=== PATIENT | female | born 1955 | race Caucasian/White ===

== ENCOUNTER 2016-12-20 12:25 | Emergency (ER) | payer OTHER ==
--- NOTE | 2016-12-20 13:56 | DIAGNOSTIC IMAGING REPORT ---
PROCEDURE: XR CHEST 1 VIEW INDICATION: CHEST PAIN TECHNIQUE: Portable AP view 01:14 p.m. COMPARISON: Chest 08/17/2015 FINDINGS: Lungs are clear. Heart and mediastinum are normal. Thorax is normal. IMPRESSION: 1. Negative chest.
--- NOTE | 2016-12-20 14:53 | ED CLINICAL REPORT ---
Clinical Report - Physicians/Mid Levels [facility] [address] [place] [address] 12/20/2016 12:27 Patient: TYLER TELLES Arrived- By private vehicle. Historian- patient. HISTORY OF PRESENT ILLNESS Chief Complaint: CHEST PAIN. It is described as tightness and it is described as located in the central chest area. No radiation. This started this morning and is still present. It was abrupt in onset and has been constant but is not gone now. Onset during rest. At its maximum, severity described as moderate. When seen in the E.D., severity described as moderate. Modifying factors- (reports the pain does not change with exertion). Not worsened by anything. Not relieved by anything. No nausea, vomiting or diaphoresis. She has had difficulty breathing. No additional chest pain. Similar symptoms previously: None. Recent medical care: The patient was seen recently in a clinic (referred to ED for further eval.). REVIEW OF SYSTEMS No fever, chills or skin rash. She has had abdominal pain. All systems otherwise negative, except as recorded above. PAST HISTORY See nurses notes. Medications: Albuterol Sulfate Inhalation. Lisinopril Oral. Estrogens Conjugated Oral. Dulara inhaler. PriLOSEC Oral. Allergies: No Known Drug Allergy. SOCIAL HISTORY Former smoker. Occasional alcohol use. No drug use. Is a local resident. FAMILY HISTORY No history of heart disease. No family history of premature onset heart disease. ADDITIONAL NOTES The nursing notes have been reviewed. PHYSICAL EXAM Vital Signs: 12/20/2016 12:33 BP: 135/71. HR: 93. RR: 19. O2 saturation: 98%. Temp: 98 F. Pain level now: 6/10. Blood pressure normal. Oxygen saturation normal. Appearance: Alert. Oriented X3. No acute distress. Eyes: Pupils equal, round and reactive to light. Eyes normal inspection. No pale conjunctivae. ENT: Ears normal. Nose normal. Pharynx normal. Neck: Normal inspection. Neck supple. No JVD. CVS: Normal heart rate and rhythm. Heart sounds normal. Pulses normal. Respiratory: No respiratory distress. No respiratory distress. Breath sounds normal. Chest nontender. No rales, rhonchi or wheezes. Abdomen: Soft and nontender. Bowel sounds normal. No mass. Back: Normal external inspection. Skin: Skin warm and dry. Normal skin color. No rash. Normal skin turgor. Extremities: Extremities exhibit normal ROM. No lower extremity edema. Neuro: Oriented X 3. No motor deficit. No sensory deficit. LABS, X-RAYS, AND EKG EKG: No acute process. No acute ischemia. Normal EKG. Normal sinus rhythm. Normal P waves. Normal NGUYEN. Normal QRS complex. Normal axis. Normal ST and T waves, QT and QTc. normal sinus. The study has been interpreted contemporaneously by me. The study has been independently viewed by me. The EKG appears to be a good tracing. Chest X-ray: (PROCEDURE: XR CHEST 1 VIEW INDICATION: CHEST PAIN TECHNIQUE: Portable AP view 01:14 p.m. COMPARISON: Chest 08/17/2015 FINDINGS: Lungs are clear. Heart and mediastinum are normal. Thorax is normal. IMPRESSION: 1. Negative chest.). Laboratory Tests: UA-Culture if indicated: (CINDY: 12/20/2016 13:50) ( MsgRcvd 12/20/2016 14:16) Final results Test Result Flag Units (Reference) URINE COLOR YELLOW URINE APPEARANCE HAZY URINE GLUCOSE NEGATIVE (NEGATIVE) URINE BILIRUBIN NEGATIVE (NEGATIVE) URINE KETONE TRACE (NEGATIVE) URINE SPECIFIC GRAVITY 1.015 (1.010-1.030) URINE PH 5.5 (5.0-8.0) URINE PROTEIN NEGATIVE (NEGATIVE) URINE UROBILINOGEN 0.2 EU/dL (0.2-1.0) URINE NITRITE NEGATIVE (NEGATIVE) URINE BLOOD NEGATIVE (NEGATIVE) URINE LEUK ESTERASE POSITIVE (NEGATIVE) URINE RBC NONE SEEN rbc/hpf (0-1) URINE WBC 1-3 wbc/hpf (0-1) URINE EPITHELIAL CELLS 3-5 EPI/hpf (0-5) URINE BACTERIA FEW (1+) (NONE SEEN) URINE COMMENT CULTURE INDICATED 1+ AMORPHOUS URATES1+ MUCUSURINE CULTURES ARE SET-UP BASED ON THE FOLLOWING CRITERIA:POSITIVE NITRITEPOSITIVE LEUKOCYTE ESTERASEGREATER THAN 10 WHITE BLOOD CELLSMODERATE (2+) OR GREATER BACTERIA CBC w Diff: (CINDY: 12/20/2016 12:35) ( [facility] [place] 13:40) Final results Test Result Flag Units (Reference) WHITE BLOOD COUNT 6.6 K/uL (4.5-11.5) RED BLOOD COUNT 4.37 M/uL (4.00-5.20) HEMOGLOBIN 13.9 gm/dL (12.0-16.0) HEMATOCRIT 41.1 % (36.0-46.0) MEAN CELL VOLUME 94 fL (80-100) MEAN CORPUSCULAR HGB 32 pg (26-34) MEAN CORPUSCULAR HGB CONC 34 g/dL (31-37) RED CELL DISTRIBUTION WIDTH 14.5 % (11.6-14.8) PLATELET COUNT 221 K/uL (150-400) NEUTROPHIL % 66.2 % (50-75) LYMPH % 28.8 % (25-40) MONO % 3.7 % (3-14) EOSINOPHIL % 0.9 % (0-4) BASOPHIL % 0.4 % (0-2) PT with INR: (CINDY: 12/20/2016 12:35) ( Mscvd 12/20/2016 13:42) Final results Test Result Flag Units (Reference) INR 0.9 (0.8-1.2) Low Intensity Therapy: INR 1.5-2.0 PT range 18.5-23.1Mod.Intensity Therapy: INR 2.0-3.0 PT range 23.1-31.5High Intensity Therapy: INR 2.5-3.5 PT range 27.4-35.5High Intensity Therapy 2: INR 3.0-4.0 PT range 31.5-39.3 D-DIMER QUANTITATIVE 0.33 ug/mLFEU (0.27-0.52) The primary value of this quantitative assay relates toits negative predictive value (i.e. exclusion) of pulmonaryembolism/deep vein thrombosis/DIC.Elevated levels of d-dimer may also occur with:, age, cancer, inflammation, liver disease,post-op, infection, hematoma, coronary disease, peripheralarteriopathy, bleeding disorders and thrombolytic treatment.Results should be correlated with other clinical andradiological data.Testing Methodology: Latex Immunoassay CMP: (CINDY: 12/20/2016 12:35) ( MsgRcvd 12/20/2016 13:46) Final results Test Result Flag Units (Reference) GLUCOSE 168 H mg/dL (70-110) BUN 13 mg/dL (7-18) CREATININE 0.9 mg/dL (0.6-1.3) Estimated GFR >60 mL/min Estimated GFR- >60 mL/min Note: Persistent reduction over 3 months in eGFR<60 mL/min/1.73 m2 defines CKD. Patients with eGFR values>=60 mL/min/1.73 m2 may also have CKD if evidence ofpersistent proteinuria. Additional information may be foundat www.kidney.org. SODIUM 141 mmol/L (136-145) POTASSIUM 3.7 mmol/L (3.5-5.1) CHLORIDE 103 mmol/L (98-107) CARBON DIOXIDE 23 mmol/L (21-32) CALCIUM 8.2 L mg/dL (8.5-10.1) TOTAL PROTEIN 6.6 g/dL (6.4-8.2) ALBUMIN 3.7 g/dL (3.3-5.0) BILIRUBIN, TOTAL 0.3 mg/dL (0.0-1.0) ALKALINE PHOSPHATASE 77 U/L (46-116) AST (SGOT) 24 U/L (15-37) ALT (SGPT) 27 U/L (12-78) TROPONIN I <0.05 L ng/mL (0.00-1.5) TROPONIN REFERENCE RANGE:<0.1 NEGATIVE0.1-1.5 INDETERMINANT>1.5 POSITIVE Culture, Urine: (CINDY: 12/20/2016 13:50) ( MsgRcvd 12/22/2016 08:02) Final results Test Result Flag Units (Reference) CULTURE, URINE DATE: 12/22/16 PRELIM REPORT: FINAL REPORT -- YST QUANTITATIVE URINE GROWTH: 10,000 TO 50,000 CFU/mL . PROGRESS AND PROCEDURES Course of Care: The patient is a pleasant 61-year-old female with past medical history significant for prior smoking preses includes thoracic dissection, pulmonary embolism,and acute myocardial infraction. Patient will be provided with chest x-ray as well as laboratory es and EKG. Patient is agreeable to treatment plan. Patient is hemodynamically within normal limits. Patient is nontoxic. We will monitor closely. Patient's EKG was reviewed. No acute abnormalities. No signs of ischemia. Patient's workup was noted to be negative. Feel that one troponin is significant enough to rule out acute myocardial infarction at this time. Patient withouta change of symptoms since presentation to the emergency department and pain has been constant. The pain is also's occurred since this morning. It is been more than 8 hours since the onset of patient's symptoms. Patient is a good outpatient candidate. Do not feel patient has aortic dissection with a normal d-dimer. Patient also sufficiently low risk forrule out of pulmonary embolism with d-dimer. Discussed the patient workup, diagnosis, home care, follow-up, and return precautions. All questions answered. The patient expressed understanding of these instructions and was agreeable to them. Of note, the patient's urinalysis was noted to be positive for nitrites. Because of this, patient will be treated for urinary tract infection. The note is being completed after the culture results have grown out Escherichia coli. Patient is on appropriate antibiotic therapy however is awaiting culture results. Disposition: Discharged. Condition: good. CLINICAL IMPRESSION Atypical chest pain .12 lead EKG performed. (acute anterior). Acute urinary tract infection. INSTRUCTIONS Warnings: GENERAL WARNINGS: Return or contact your physician immediately if your condition worsens or changes unexpectedly, if not improving as expected, or if other problems arise. SPECIFICALLY, return if you develop chest, neck, jaw, shoulder, arm, or back pain, difficulty breathing, a fluttering sensation in your chest, lightheadedness, fainting, excessive fatigue, or sudden sweating. Your Current Medications: CONTINUE TAKING THE FOLLOWING MEDICATIONS: Albuterol Sulfate Inhalation. Dulara inhaler*. Estrogens Conjugated Oral. Lisinopril Oral. PriLOSEC Oral. Prescription Medications: Keflex 500 mg: take 1 capsule orally every 8 hours for 5 days. No refill. Substitution is permissible. (disp 15 caps) OTC Medications: Aspirin 81 mg (available over the counter): take 1 orally every 24 hours. Dispense thirty (30). No refills. Follow-up: Return to the emergency department as needed. Follow up with your doctor in three days. Reason for referral: recheck today's concerns. Summary of care provided to patient via paper. Screening today revealed the patient's blood pressure to be in the normal range. The patient should follow up with a primary care provider for blood pressure management. Understanding of the discharge instructions verbalized by patient. (Electronically signed by Sonu Madrid Dr. 12/23/2016 6:42) Addenda for KOKI TYLER Delano VisitID: [id number] Date: 12/20/2016 12/22/2016 17:03 1650 contacted pt re: urine cultre; will call rx for Diflucan 150 mg, 1 po x3 days, #3, to [facility] in [place] per H Emery FLOR, script called in (Electronically signed by Haydee Hess R.N. - 12/22/2016 17:03)
--- NOTE | 2016-12-20 14:54 | ED ORDER SUMMARY ---
..... 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 per protocol) (13:02 EHassan R.N.) EKG - ER Stat (13:12/20/2016 EHassan R.N. per protocol) (13:02 EHassan R.N.) Vitals (13:12/20/2016 EHassan R.N. per protocol) (13:02 EHassan R.N.) Chest 1V Urgent (13:12/20/2016 Joon Mcdonald) (Ack 13:15 LMuller) (13:25 EHassan R.N.) Workforce Management Analyst (Continuous) (CP) (13:12/20/2016 Joon Mcdonald) (Ack 13:15 LMuller) (13:25 EHassan R.N.) CBC w Diff Urgent (13:12/20/2016 Joon Mcdonald) (Ack 13:15 LMuller) (13:25 EHassan R.N.) CMP Urgent (13:12/20/2016 Joon Mcdonald) (Ack 13:15 LMuller) (13:25 EHassan R.N.) UA-Culture if indicated Urgent (13:12/20/2016 Joon Mcdonald) (Ack 13:15 LMuller) (13:53 EHassan R.N.) PT with INR Urgent (13:12/20/2016 Joon Mcdonald) (Ack 13:15 LMuller) (13:25 EHassan R.N.) D-Dimer Urgent (13:12/20/2016 Joon Mcdonald) (Ack 13:15 LMuller) (13:25 EHassan R.N.) Troponin-I Urgent (13:12/20/2016 Joon Mcdonald) (Ack 13:15 LMuller) (13:25 Emanuel R.N.) Pulse oximeter (13:08 12/20/2016 Joon Mcdonald) (Ack 13:15 LMuller) (13:25 Emanuel R.N.) MEDICATION ORDERS: Aspirin PO 325 mg (Do not crush or chew, NOW) (13:08 12/20/2016 Joon Mcdonald) (13:25 Emanuel R.N.) Keflex PO 500 mg (NOW) (14:51 12/20/2016 Joon Mcdonald) (14:56 Emanuel R.N.) IV FLUIDS: IV Saline Lock (13:02 12/20/2016 Emanuel Snigh per protocol) (13:02 Emanuel Duncan.N.) IV Saline Lock (13:08 12/20/2016 Joon Mcdonald) ORDER SHEET NOTES: [Electronically signed by Afua Rodas R.N. (15:07 12/20/2016)] [Electronically signed by Sonu Madrid Dr. (06:42 12/23/2016)] [Electronically locked/signed by Afua Rodas R.N. (15:07 12/20/2016)]
--- NOTE | 2016-12-20 14:54 | ED ORDER SUMMARY ---
..... 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 per protocol) (13:02 EHassan R.N.) EKG - ER Stat (13:12/20/2016 EHassan R.N. per protocol) (13:02 EHassan R.N.) Vitals (13:12/20/2016 EHassan R.N. per protocol) (13:02 EHassan R.N.) Chest 1V Urgent (13:12/20/2016 Joon Mcdonald) (Ack 13:15 LMuller) (13:25 EHassan R.N.) Shipyard Supervisor (Continuous) (CP) (13:12/20/2016 Joon Mcdonald) (Ack 13:15 LMuller) (13:25 EHassan R.N.) CBC w Diff Urgent (13:12/20/2016 Joon Mcdonald) (Ack 13:15 LMuller) (13:25 EHassan R.N.) CMP Urgent (13:12/20/2016 Joon Mcdonald) (Ack 13:15 LMuller) (13:25 EHassan R.N.) UA-Culture if indicated Urgent (13:12/20/2016 Joon Mcdonald) (Ack 13:15 LMuller) (13:53 EHassan R.N.) PT with INR Urgent (13:12/20/2016 Joon Mcdonald) (Ack 13:15 LMuller) (13:25 EHassan R.N.) D-Dimer Urgent (13:12/20/2016 Joon Mcdonald) (Ack 13:15 LMuller) (13:25 EHassan R.N.) Troponin-I Urgent (13:12/20/2016 Joon Mcdonald) (Ack 13:15 LMuller) (13:25 Emanuel R.N.) Pulse oximeter (13:08 12/20/2016 Joon Mcdonald) (Ack 13:15 LMuller) (13:25 Emanuel R.N.) MEDICATION ORDERS: Aspirin PO 325 mg (Do not crush or chew, NOW) (13:08 12/20/2016 Joon Mcdonald) (13:25 Emanuel R.N.) Keflex PO 500 mg (NOW) (14:51 12/20/2016 Joon Mcdonald) (14:56 Emanuel R.N.) IV FLUIDS: IV Saline Lock (13:02 12/20/2016 Emanuel Singh per protocol) (13:02 Emanuel Duncan.N.) IV Saline Lock (13:08 12/20/2016 Joon Mcdonald) ORDER SHEET NOTES: [Electronically signed by Afua Rodas R.N. (15:07 12/20/2016)] [Electronically signed by Sonu Madrid Dr. (06:42 12/23/2016)] [Electronically locked/signed by Afua Rodas R.N. (15:07 12/20/2016)]
--- NOTE | 2016-12-20 14:54 | ED NURSING NOTES ---
Clinical Report - Nurses [facility] [address] [place] [address] 12/20/2016 12:27 Patient: TYLER TELLES TRIAGE Triage time 1234 PM. Acuity: LEVEL 3. Chief Complaint: CHEST PAIN and DISCOMFORT and SHORTNESS OF BREATH. Alert. No acute distress. SEPSIS SCREEN: Sepsis Screen. Negative (no infection suspected/documented). --12:42 Afua Rodas R.N. 12:33 12/20/16. BP: 135/71. HR: 93. RR: 19. O2 saturation: 98% on room air. Temp: 98 F (oral). Pain level now: 04/28. --12:42 Afua Rodas R.N. Weight: 56.6 kg stated. Height/Length: 65 inches Per Patient. BMI: 20.8. --12:35 Afua Rodas R.N. Medications Dulara inhaler. PriLOSEC Oral. --12:39 Afua Rodas R.N. Estrogens Conjugated Oral. --12:40 Afua Rodas R.N. Lisinopril Oral. --12:40 Afua Rodas R.N. Albuterol Sulfate Inhalation. --12:40 Afua Rodas R.N. Allergies No Known Drug Allergy. --12:39 Afua Rodas R.N. Medication/allergy information source: the patient. --12:42 Afua Rodas R.N. History Arrived by private vehicle. Historian: patient. Accompanied by family. Primary physician (Dr. Toth). ( Pt has been experiencing CP and heaviness, started with numbness on the left side "heaviness" last night and has gotten worst since this morning. Pt has been experiencing dizziness with SOB. Pt was sent over from the clinic to further evaluate CP). The patient has had difficulty breathing. Reports experiencing sweating episodes. 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 PAST MEDICAL HX: Immunizations: up-to-date. SOCIAL HX: Former smoker. Occasional alcohol use; consumes wine by the glass. No drug use. ABUSE ASSESSMENT: No report of abuse. SELF HARM ASSESSMENT: A self harm assessment was performed. The patient answered "no" to the question "Do you have thoughts of harming or killing yourself?" and "Have you recently had thoughts about harming or killing others?". FALL RISK ASSESSMENT: Fall risk assessment completed. No fall risk identified. NUTRITIONAL RISK ASSESSMENT: The nutritional risk assessment revealed no deficiencies. FUNCTIONAL ASSESSMENT: Functional assessment: no impairments noted. LEARNING NEEDS ASSESSMENT: The learning needs assessment revealed no barriers. SKIN INTEGRITY ASSESSMENT: Skin integrity risk assessment completed. No skin integrity risk identified. --12:42 Afua Rodas R.N. PROBLEMS: Gastroesophageal Reflux Disease. Acute Pain. Gastroesophageal Reflux. Depression. Anxiety Reaction. Asthma. --12:39 Afua Rodas R.N. Hypertension. --12:40 Afua Rodas R.N. ADDITIONAL SURGERIES: Hernia Repair. Hysterectomy. --12:39 Afua Rodas R.N. Interventions ID band on patient. --12:42 Afua Rodas R.N. PHYSICAL ASSESSMENT 12:53 PM. Ambulatory to room. ( Pt does state being sick late October with a couple of rounds of ABX, diagnosed with bronchitis, does admit when taking deep breath "hurts my chest"). GENERAL / NEURO / PSYCH: Alert. Oriented X 4. Appears in no acute distress. HEENT: Mucous membranes are pink. RESPIRATORY: Respirations not labored. Chest nontender. Breath sounds within normal limits. CVS: Normal sinus rhythm noted. Heart sounds within normal limits. Pulses within normal limits. Capillary refill less than 2 seconds. GI / : Abdomen soft and nontender. EXTREMITIES: No lower extremity edema. SKIN: Skin is warm and dry. Normal skin turgor. Skin is non-tender. --13:01 Afua Rodas R.N. NURSING PROGRESS NOTES 12:44 12/20/2016 Site #1 started via IV in the left forearm with an 20g angiocath; one attempt. Blood drawn: rainbow set. Labeled in the presence of the patient and sent to the lab. Saline lock flushed with 10 mL saline. --12:54 Afua Rodas R.N. Cardiac rhythm: normal sinus rhythm. The initial plan of care for this patient has been created This plan of care was discussed with the patient. campus monitor, pulse oximeter and NIBP monitor placed on patient. EKG time: (1250 PM). EKG was performed by a nurse and shown to the ED physician. Patient ID band checked for patient name, birthdate and medical record number: patient confirmed. Blood samples drawn from the left forearm peripheral IV site with Vacutainer 22g by nurse per protocol ; labeled in presence of the patient and sent to lab: rainbow set. Patient gowned. Reassurance given. The patient is calm. Overall patient status is the same- she states feels the same. RESPIRATORY: Denies difficulty breathing. No respiratory distress. CVS: The patient reports chest pain. Normal sinus rhythm noted. SKIN: Skin color within normal limits. Two patient identifiers checked. Call light placed in reach. Side rails up x 1. Brakes of bed on. Brakes of chair on. ( Pt states pain gets worse when takes deep breaths and when exposed to cold weather.). --12:56 Afua Rodas R.N. 12:53 12/20/16. BP: 147/79. HR: 79. RR: 19. O2 saturation: 100%. Pain level now: 03/28. --12:56 Afua Rodas R.N. 13:00 12/20/16. BP: 149/81 (regular adult cuff) taken on the right arm, via an automated monitor, while sitting. HR: 82 (regular and normal rate). RR: 17. O2 saturation: 97%. Pain level now: 03/28. --13:20 Afua Rodas R.N. Portable chest x-ray performed. Reassurance given. The patient is calm and resting quietly. --13:20 Afua Rodas R.N. 13:20 12/20/2016 Aspirin PO Tablets 325 mg given. Allergies verified and confirmed 5 rights. --13:25 Afua Rodas R.N. 13:54 12/20/2016 Aspirin PO Response: no adverse reaction. --13:54 Afua Rodas R.N. 14:56 12/20/2016 Keflex (Cephalexin) PO Tablets 500 mg given. Allergies verified and confirmed 5 rights. --14:56 Afua Rodas R.N. DISPOSITION / DISCHARGE 15:00 12/20/2016 Site #1 removed upon discharge. Catheter intact. Manual pressure and bandaid applied. --15:05 Afua Rodas R.N. Cardiac rhythm: normal sinus rhythm. Departure time: 1503 PM. Condition at departure: improved and stable. The goals identified in the patient's plan of care were met. No learning barriers present. Discharge instructions provided and reviewed with the patient. Reviewed medication(s) side effects, precautions, dosing and course information. Prescription(s) given to the patient. Reviewed need for increased fluid intake. Activity restrictions (rest) reviewed. Patient verbalized understanding. Written instructions provided in Czech. The patient was discharged by the physician. She was discharged home and unaccompanied at time of discharge. She left the Emergency Department ambulatory and via private vehicle. Patient driving. FALL RISK ASSESSMENT: Fall risk assessment completed. No fall risk identified. ELINOR COMA SCORE: [place] Coma Scale: 15- eyes open spontaneously (4); best verbal response- oriented x 4 (5); best motor response- obeys commands (6). --15:06 Afua Rodas R.N. 15:00 12/20/16. BP: 145/96 (regular adult cuff) taken on the left arm, via an automated monitor, while sitting. HR: 75 (regular and normal rate). RR: 12 (regular and unlabored). O2 saturation: 100% on room air. Temp: 98 F (oral). Pain level now: 01/26. --15:06 Afua Rodas R.N. Locked/Released at 12/20/2016 15:07 by Afua Rodas R.N.
--- NOTE | 2016-12-23 06:42 | ED DISCHARGE INSTRUCTIONS ---
Patient: TYLER TELLES General Instructions [facility] VisitID: [id number] [place] [address] 61y, F Registration Date/Time: 12/20/2016 Atypical chest pain .12 lead EKG performed. (acute anterior). Acute urinary tract infection. INSTRUCTIONS Warnings: GENERAL WARNINGS: Return or contact your physician immediately if your condition worsens or changes unexpectedly, if not improving as expected, or if other problems arise. SPECIFICALLY, return if you develop chest, neck, jaw, shoulder, arm, or back pain, difficulty breathing, a fluttering sensation in your chest, lightheadedness, fainting, excessive fatigue, or sudden sweating. Your Current Medications: CONTINUE TAKING THE FOLLOWING MEDICATIONS: Albuterol Sulfate Inhalation. Dulara inhaler*. Estrogens Conjugated Oral. Lisinopril Oral. PriLOSEC Oral. Prescription Medications: Keflex 500 mg: take 1 capsule orally every 8 hours for 5 days. No refill. Substitution is permissible. (disp 15 caps) OTC Medications: Aspirin 81 mg (available over the counter): take 1 orally every 24 hours. Dispense thirty (30). No refills. Follow-up: Return to the emergency department as needed. Follow up with your doctor in three days. Reason for referral: recheck today's concerns. Summary of care provided to patient via paper. Screening today revealed the patient's blood pressure to be in the normal range. The patient should follow up with a primary care provider for blood pressure management. Understanding of the discharge instructions verbalized by patient. ADDITIONAL INFORMATION Chest Pain, Uncertain Cause Chest pain can happen for a number of reasons. Sometimes the cause can not be determined. If yourcondition does not seem serious, and your pain does not appear to be coming from your heart, your doctor may recommend watching it closely. Sometimes the signs of a serious problem take more time to appear. Therefore, watch for the warning signs listed below. Home care After your visit, follow these recommendations: Rest today and avoid strenuous activity. Take any prescribed medicine as directed. Follow-up care Follow up with your doctor or this facility as instructed or if you do not start to feel better within 24 hours. Call 911 Get immediate medical attention if any of the following occur: A change in the type of pain: if it feels different, becomes more severe, lasts longer, or begins to spread into your shoulder, arm, neck, jaw or back Shortness of breath or increased pain with breathing Weakness, dizziness, or fainting Rapid heart beat Get prompt medical attention Call your doctor right away if any of the following occur: Cough with dark colored sputum (phlegm) or blood Fever of 100.4F(38C) or higher, or as directed by your health care provider Swelling, pain or redness in one leg Bladder Infection,Female (Adult) A bladder infection ("cystitis" or "UTI") usually causes a constant urge to urinate and a burning when passing urine. Urine may be cloudy, smelly or dark. There may be pain in the lower abdomen. A bladder infection occurs when bacteria from the vaginal area enter the bladder opening (urethra). This can occur from sexual intercourse, wearing tight clothing, dehydration and other factors. Home Care: Drink lots of fluids (at least 6-8 glasses a day, unless you must restrict fluids for other medical reasons). This will force the medicine into your urinary system and flush the bacteria out of your body. Avoid sexual intercourse until your symptoms are gone. Avoid caffeine, alcohol and spicy foods. These can irritate the bladder. A bladder infection is treated with antibiotics. You may also be given Pyridium (generic = phenazopyridine) to reduce the burning sensation. This medicine will cause your urine to become a bright orange color. The orange urine may stain clothing. You may wear a pad or panty-liner to protect clothing. Preventing Future Infections: Always wipe from front to back after a bowel movement. Keep the genital area clean and dry. Drink plenty of fluids each day to avoid dehydration. Both sexual partners should wash before intercourse. Urinate right after intercourse to flush out the bladder. Wear cotton underwear and cotton-lined panty hose; avoid tight-fitting pants. If you are on control pills and are having frequent bladder infections, discuss with your doctor. Follow Up: Return to this facility or see your doctor if ALL symptoms are not gone after three days of treatment. Get Prompt Medical Attention if any of the following occur: Fever of 100.4F (38C) or higher, or as directed by your healthcare provider No improvement by the third day of treatment Increasing back or abdominal pain Repeated vomiting; unable to keep medicine down Weakness, dizziness or fainting Vaginal discharge Pain, redness or swelling in the labia (outer vaginal area) Cephalexin Monohydrate Oral tablet What is this medicine? CEPHALEXIN (sef a TIMOTHY in) is a cephalosporin antibiotic. It is used to treat certain kinds of bacterial infections It will not work for colds, flu, or other viral infections. How should I use this medicine? Take this medicine by mouth with a full glass of water. Follow the directions on the prescription label. This medicine can be taken with or without food. Take your medicine at regular intervals. Do not take your medicine more often than directed. Take all of your medicine as directed even if you think you are better. Do not skip doses or stop your medicine early. Talk to your courier regarding the use of this medicine in children. While this drug may be prescribed for selected conditions, precautions do apply. What side effects may I notice from receiving this medicine? Side effects that you should report to your doctor or health career based intervention coordinator as soon as possible: allergic reactions like skin rash, itching or hives, swelling of the face, lips, or tongue breathing problems pain or trouble passing urine redness, blistering, peeling or loosening of the skin, including inside the mouth severe or watery diarrhea unusually weak or tired yellowing of the eyes, skin Side effects that usually do not require medical attention (report to your doctor or health career based intervention coordinator if they continue or are bothersome): gas or heartburn genital or anal irritation headache joint or muscle pain nausea, vomiting What may interact with this medicine? probenecid some other antibiotics What if I miss a dose? If you miss a dose, take it as soon as you can. If it is almost time for your next dose, take only that dose. Do not take double or extra doses. There should be at least 4 to 6 hours between doses. Where should I keep my medicine? Keep out of the reach of children. Store at room temperature between 59 and 86 degrees F (15 and 30 degrees C). Throw away any unused medicine after the expiration date. What should I tell my health care provider before I take this medicine? They need to know if you have any of these conditions: kidney disease stomach or intestine problems, especially colitis an unusual or allergic reaction to cephalexin, other cephalosporins, penicillins, other antibiotics, medicines, foods, dyes or preservatives or trying to get breast-feeding What should I watch for while using this medicine? Tell your doctor or health career based intervention coordinator if your symptoms do not begin to improve in a few days. Do not treat diarrhea with over the counter products. Contact your doctor if you have diarrhea that lasts more than 2 days or if it is severe and watery. If you have diabetes, you may get a false-positive result for sugar in your urine. Check with your doctor or health career based intervention coordinator. Aspirin Oral tablet What is this medicine? ASPIRIN ( pir in) is a pain reliever. It is used to treat mild pain and fever. This medicine is also used as directed by a doctor to prevent and to treat heart attacks, to prevent strokes, and to treat arthritis or inflammation. How should I use this medicine? Take this medicine by mouth with a glass of water. Follow the directions on the package or prescription label. You can take this medicine with or without food. If it upsets your stomach, take it with food. Do not take your medicine more often than directed. Talk to your courier regarding the use of this medicine in children. While this drug may be prescribed for children as young as 12 years of age for selected conditions, precautions do apply. Children and teenagers should not use this medicine to treat chicken pox or flu symptoms unless directed by a doctor. Patients over 65 years old may have a stronger reaction and need a smaller dose. What side effects may I notice from receiving this medicine? Side effects that you should report to your doctor or health career based intervention coordinator as soon as possible: allergic reactions like skin rash, itching or hives, swelling of the face, lips, or tongue breathing problems changes in hearing, ringing in the ears confusion general ill feeling or flu-like symptoms pain on swallowing redness, blistering, peeling or loosening of the skin, including inside the mouth or nose signs and symptoms of bleeding such as bloody or black, tarry stools; red or dark-brown urine; spitting up blood or brown material that looks like coffee grounds; red spots on the skin; unusual bruising or bleeding from the eye, gums, or nose trouble passing urine or change in the amount of urine unusually weak or tired yellowing of the eyes or skin Side effects that usually do not require medical attention (report to your doctor or health career based intervention coordinator if they continue or are bothersome): diarrhea or constipation nausea, vomiting stomach gas, heartburn What may interact with this medicine? Do not take this medicine with any of the following medications: cidofovir ketorolac probenecid This medicine may also interact with the following medications: alcohol alendronate bismuth subsalicylate flavocoxid herbal supplements like feverfew, garlic, montez, ginkgo biloba, horse chestnut medicines for diabetes or glaucoma like acetazolamide, methazolamide medicines for gout medicines that treat or prevent blood clots like enoxaparin, heparin, ticlopidine, warfarin other aspirin and aspirin-like medicines NSAIDs, medicines for pain and inflammation, like ibuprofen or naproxen pemetrexed sulfinpyrazone varicella live vaccine What if I miss a dose? If you are taking this medicine on a regular schedule and miss a dose, take it as soon as you can. If it is almost time for your next dose, take only that dose. Do not take double or extra doses. Where should I keep my medicine? Keep out of the reach of children. Store at room temperature between 15 and 30 degrees C (59 and 86 degrees F). Protect from heat and moisture. Do not use this medicine if it has a strong vinegar smell. Throw away any unused medicine after the expiration date. What should I tell my health care provider before I take this medicine? They need to know if you have any of these conditions: anemia asthma bleeding problems child with chickenpox, the flu, or other viral infection diabetes gout if you frequently drink alcohol containing drinks kidney disease liver disease low level of vitamin K lupus smoke tobacco stomach ulcers or other problems an unusual or allergic reaction to aspirin, tartrazine dye, other medicines, dyes, or preservatives or trying to get breast-feeding What should I watch for while using this medicine? If you are treating yourself for pain, tell your doctor or health career based intervention coordinator if the pain lasts more than 10 days, if it gets worse, or if there is a new or different kind of pain. Tell your doctor if you see redness or swelling. Also, check with your doctor if you have a fever that lasts for more than 3 days. Only take this medicine to prevent heart attacks or blood clotting if prescribed by your doctor or health career based intervention coordinator. Do not take aspirin or aspirin-like medicines with this medicine. Too much aspirin can be dangerous. Always read the labels carefully. This medicine can irritate your stomach or cause bleeding problems. Do not smoke cigarettes or drink alcohol while taking this medicine. Do not lie down for 30 minutes after taking this medicine to prevent irritation to your throat. If you are scheduled for any medical or dental procedure, tell your healthcare provider that you are taking this medicine. You may need to stop taking this medicine before the procedure. You have been given the following additional information: Chest Pain, Uncertain Cause Bladder Infection, Female (Adult) Cephalexin Monohydrate Oral tablet Aspirin Oral tablet (Electronically signed by Sonu Madrid Dr. 12/23/2016 6:42)
--- NOTE | 2016-12-23 06:42 | ED MAR SUMMARY ---
..... Medication Administration Record [facility] [address] [place] [address] Patient: TYLER TELLES Visit ID: [id number] 61y, F Weight: 56.6 kg Height/Length: 65 in BMI: 20.8 ALLERGIES: No Known Drug Allergy Given 13:20 12/20/2016 Afua Rodas, R.N. Medication Administered: ASPIRIN [PO], Dose: 325 mg Tablets PO. Medication Ordered: Aspirin PO 325 mg (Do not crush or chew, NOW). Given 14:56 12/20/2016 Afua Rodas, R.N. Medication Administered: KEFLEX [PO] (CEPHALEXIN), Dose: 500 mg Tablets PO. Medication Ordered: Keflex PO 500 mg (NOW).
--- NOTE | 2016-12-23 06:42 | ED MAR SUMMARY ---
..... Medication Administration Record [facility] [address] [place] [address] Patient: TYLER TELLES Visit ID: [id number] 61y, F Weight: 56.6 kg Height/Length: 65 in BMI: 20.8 ALLERGIES: No Known Drug Allergy Given 13:20 12/20/2016 Afua oRdas, R.N. Medication Administered: ASPIRIN [PO], Dose: 325 mg Tablets PO. Medication Ordered: Aspirin PO 325 mg (Do not crush or chew, NOW). Given 14:56 12/20/2016 Afua Rodas, R.N. Medication Administered: KEFLEX [PO] (CEPHALEXIN), Dose: 500 mg Tablets PO. Medication Ordered: Keflex PO 500 mg (NOW).
--- NOTE | 2016-12-23 06:42 | ED MED RECONCILIATION SUMMARY ---
Patient: TYLER TELLES Medication Reconciliation Report [facility] VisitID: [id number] [address] [place] [address] 61y, F Registration Date/Time: 12/20/2016 Weight: 56.6 kg Height/Length: 65 in. BMI: 20.8 ALLERGIES: No Known Drug Allergy The patient's Home Medications are listed below: CONTINUE TAKING THE FOLLOWING MEDICATIONS: Albuterol Sulfate Inhalation Dulara inhaler Estrogens Conjugated Oral Lisinopril Oral PriLOSEC Oral The source(s) of the original Home Medication information: patient The following Medications were given to the patient in the Emergency Department: Aspirin [PO] PO 325 mg, administered: 12/20/2016 1:20:00 PM Keflex [PO] PO 500 mg, administered: 12/20/2016 2:56:00 PM The following Medications were prescribed to the patient: Keflex 500 mg: take 1 capsule orally every 8 hours for 5 days. No refill. Substitution is permissible.(disp 15 caps) -- Sonu Madrid Dr. Aspirin 81 mg (available over the counter): take 1 orally every 24 hours. Dispense thirty (30). No refills. -- Sonu Madrid Dr.
--- NOTE | 2016-12-23 06:42 | ED MED RECONCILIATION SUMMARY ---
Patient: TYLER TELLES Medication Reconciliation Report [facility] VisitID: [id number] [address] [place] [address] 61y, F Registration Date/Time: 12/20/2016 Weight: 56.6 kg Height/Length: 65 in. BMI: 20.8 ALLERGIES: No Known Drug Allergy The patient's Home Medications are listed below: CONTINUE TAKING THE FOLLOWING MEDICATIONS: Albuterol Sulfate Inhalation Dulara inhaler Estrogens Conjugated Oral Lisinopril Oral PriLOSEC Oral The source(s) of the original Home Medication information: patient The following Medications were given to the patient in the Emergency Department: Aspirin [PO] PO 325 mg, administered: 12/20/2016 1:20:00 PM Keflex [PO] PO 500 mg, administered: 12/20/2016 2:56:00 PM The following Medications were prescribed to the patient: Keflex 500 mg: take 1 capsule orally every 8 hours for 5 days. No refill. Substitution is permissible.(disp 15 caps) -- Sonu Madrid Dr. Aspirin 81 mg (available over the counter): take 1 orally every 24 hours. Dispense thirty (30). No refills. -- Sonu Madrid Dr.
== END 2016-12-20 15:03 | disposition home or self-care (01) ==
LOC: ED SRH 12:25
DX: R07.89 Other chest pain (principal); N39.0 Urinary tract infection, site not specified; Z79.51 Long term (current) use of inhaled steroids; Z79.899 Other long term (current) drug therapy; J45.909 Unspecified asthma, uncomplicated; Z87.891 Personal history of nicotine dependence
CPT/HCPCS: 90004; 90100; 90469; 90616; 91556; 94060; 95059